=== PATIENT | female | born 1975 | race Caucasian/White ===

== ENCOUNTER 2018-04-27 11:59 | Inpatient (IN) | payer MEDICAID ==
[~2018-04-27] VITALS: Ht 157.5 cm; Wt 82.1 kg
[2018-04-27 12:11] VITALS: Ht 157.5 cm; Wt 82.1 kg
[2018-04-27 13:50] LABS: UA SPECIFIC GRAVITY 1.025 (1.005-1.035); microscopic required? YES; urine erythrocyte 3+ (NEGATIVE)
[2018-04-27 13:51] LABS: BASOPHIL % 0.6 % (0-2); PLATELET COUNT 243 x10^3mcL (130-400)
[2018-04-27 14:07] LABS: RED CELL DISTRIBUTION WIDTH 19.6 % (11.5-14.5)
[2018-04-27 14:12] LABS: CALCIUM 7.9 mg/dL (8.5-10.1); CARBON DIOXIDE 27.7 mmol/L (21-32); CHLORIDE SERUM 103 mmol/L (98-107); CREATININE SERUM 0.8 mg/dL (0.6-1.0); GFR1 > 60 mL/min; GLUCOSE SERUM 108 mg/dL (74-106); POTASSIUM SERUM 3.6 mmol/L (3.5-5.1); SODIUM SERUM 137 mmol/L (136-145)
[2018-04-27 14:16] LABS: ALKALINE PHOSPHATASE 75 U/L (46-116); AST/SGOT 8 U/L (15-37); BILIRUBIN TOTAL 0.25 mg/dL (0.20-1.00)
[2018-04-27 14:17] LABS: ALBUMIN 2.9 g/dL (3.4-5.0)
[2018-04-27 14:50] LABS: ALT/SGPT 16 U/L (14-59)
[2018-04-27 15:11] LABS: MAGNESIUM 1.7 mg/dL (1.8-2.4); PHOSPHOROUS 2.3 mg/dL (2.5-4.9)
[2018-04-27 15:23] LABS: CHOLESTEROL/HDL RATIO 2.5
[2018-04-27 16:46] VITALS: BP 129/71
[2018-04-27 17:33] VITALS: BP 129/71
[2018-04-27 21:20] VITALS: BP 130/72
[2018-04-27 21:49] LABS: AMPHETAMINE QUAL UR POSITIVE (See below)
[2018-04-28 05:05] VITALS: BP 117/68
[2018-04-28 06:34] LABS: BASOPHIL % 0.2 % (0-2); PLATELET COUNT 213 x10^3mcL (130-400)
[2018-04-28 06:44] LABS: RED CELL DISTRIBUTION WIDTH 18.5 % (11.5-14.5)
[2018-04-28 06:47] LABS: CALCIUM 8.1 mg/dL (8.5-10.1); CARBON DIOXIDE 28.6 mmol/L (21-32); CHLORIDE SERUM 103 mmol/L (98-107); CREATININE SERUM 0.9 mg/dL (0.6-1.0); GFR1 > 60 mL/min; GLUCOSE SERUM 102 mg/dL (74-106); MAGNESIUM 1.9 mg/dL (1.8-2.4); PHOSPHOROUS 4.2 mg/dL (2.5-4.9); SODIUM SERUM 137 mmol/L (136-145)
[2018-04-28 08:45] VITALS: BP 119/53
[2018-04-28 09:02] VITALS: BP 119/53
[2018-04-28 12:09] VITALS: BP 132/70
[2018-04-28 17:08] VITALS: BP 121/70
[2018-04-28 21:19] VITALS: BP 133/72
[2018-04-29 05:35] VITALS: BP 137/74
[2018-04-29 09:18] VITALS: BP 165/82
[2018-04-29 13:53] VITALS: BP 140/83
[2018-04-29 17:47] VITALS: BP 131/76
[2018-04-29 20:42] VITALS: BP 130/66
[2018-04-30 03:30] VITALS: BP 91/54
[2018-04-30 05:29] VITALS: BP 137/77
[2018-04-30 06:27] LABS: BASOPHIL % 0.2 % (0-2); PLATELET COUNT 229 x10^3mcL (130-400)
[2018-04-30 06:38] LABS: CALCIUM 8.3 mg/dL (8.5-10.1); CARBON DIOXIDE 26.6 mmol/L (21-32); CHLORIDE SERUM 106 mmol/L (98-107); CREATININE SERUM 0.8 mg/dL (0.6-1.0); GFR1 > 60 mL/min; GLUCOSE SERUM 88 mg/dL (74-106); MAGNESIUM 1.6 mg/dL (1.8-2.4); PHOSPHOROUS 3.5 mg/dL (2.5-4.9); POTASSIUM SERUM 4.2 mmol/L (3.5-5.1); SODIUM SERUM 140 mmol/L (136-145)
[2018-04-30 07:05] LABS: RED CELL DISTRIBUTION WIDTH 19.5 % (11.5-14.5)
[2018-04-30 09:31] VITALS: BP 137/77
[2018-04-30 10:37] VITALS: BP 147/74
[2018-04-30] MEDS ORDERED: CIPROFLOXACIN500 MG PO (13:01)
[2018-04-30] MEDS ORDERED: NORCO1 TA2 PO (13:02)
[2018-04-30 13:17] VITALS: BP 147/74
[2018-04-30 13:37] VITALS: BP 122/73
== END 2018-04-30 14:53 | disposition home or self-care (01) | DRG 463 ==
LOC: ED 11:59 → MU 14:50 → DU 14:50 → MU 16:15 → DU 17:36
PROVIDERS: Emergency Medicine; Internal Medicine
DX: N39.0 Urinary tract infection, site not specified (principal); N17.0 Acute kidney failure with tubular necrosis; E44.0 Moderate protein-calorie malnutrition; E83.39 Other disorders of phosphorus metabolism; D50.9 Iron deficiency anemia, unspecified; F17.200 Nicotine dependence, unspecified, uncomplicated; B96.1 Klebsiella pneumoniae [K. pneumoniae] as the cause of diseases classified elsewhere; E83.51 Hypocalcemia; I10 Essential (primary) hypertension; J45.909 Unspecified asthma, uncomplicated; E78.1 Pure hyperglyceridemia; Z68.29 Body mass index [BMI] 29.0-29.9, adult
CPT/HCPCS: 83880; 87804; 99406; C9113; J0696; J0744; J1885; J2405; J7030; J7620; Q0092

== ENCOUNTER 2018-09-03 05:11 | Emergency (ER) | payer MEDICAID ==
[~2018-09-03] VITALS: Ht 157.5 cm; Wt 81.6 kg
[~2018-09-03 05:11] MED LIST: CIPROFLOXACIN500 MG PO; NORCO1 TA2 PO
[2018-09-03 05:20] VITALS: Ht 157.5 cm; Wt 81.6 kg
[2018-09-03 06:32] VITALS: BP 166/90
[2018-09-03 06:44] LABS: microscopic required? YES; urine erythrocyte 3+ (NEGATIVE)
== END 2018-09-03 06:32 | disposition home or self-care (01) ==
LOC: ED 05:11
PROVIDERS: Specialist
DX: N39.0 Urinary tract infection, site not specified (principal); J45.909 Unspecified asthma, uncomplicated; I10 Essential (primary) hypertension; Z98.51 Tubal ligation status; Z91.018 Allergy to other foods; Z98.890 Other specified postprocedural states
CPT/HCPCS: J0696; J1885; Q0162

== ENCOUNTER 2018-10-24 23:37 | Inpatient (IN) | payer MEDICAID ==
[~2018-10-24] VITALS: Ht 157.5 cm; Wt 82.0 kg
[2018-10-24 23:42] VITALS: Ht 157.5 cm; Wt 82.0 kg
[2018-10-25 00:21] LABS: CALCIUM 8.5 mg/dL (8.5-10.1); CARBON DIOXIDE 27.4 mmol/L (21-32); CREATININE SERUM 1.1 mg/dL (0.6-1.0); POTASSIUM SERUM 3.3 mmol/L (3.5-5.1)
[2018-10-25 00:26] LABS: BASOPHIL % 0.5 % (0-2); PLATELET COUNT 343 x10^3mcL (130-400); RED CELL DISTRIBUTION WIDTH 19.9 % (11.5-14.5)
[2018-10-25 00:28] LABS: BILIRUBIN TOTAL 0.4 mg/dL (0.20-1.00); TOTAL PROTEIN, SERUM 7.4 g/dL (6.4-8.2)
[2018-10-25 00:31] LABS: ALBUMIN 3.1 g/dL (3.4-5.0)
[2018-10-25 02:56] LABS: CHOLESTEROL/HDL RATIO 2.7
[2018-10-25 03:07] LABS: T3 TOTAL 1.12 ng/mL
[2018-10-25 03:21] LABS: FREE T4 0.88 ng/dL (0.76-1.46); FREE THYROXINE INDEX 1.6 ug/dL (1.4-4.5); T4(THYROXINE) 4.9 ug/dL (4.7-13.3)
[2018-10-25 03:33] VITALS: BP 148/79
[2018-10-25 06:39] LABS: CALCIUM 8.4 mg/dL (8.5-10.1); CARBON DIOXIDE 27.6 mmol/L (21-32); CREATININE SERUM 1.1 mg/dL (0.6-1.0); POTASSIUM SERUM 3.3 mmol/L (3.5-5.1)
[2018-10-25 07:25] LABS: BASOPHIL % 0.8 % (0-2); PLATELET COUNT 303 x10^3mcL (130-400)
[2018-10-25 07:45] LABS: RED CELL DISTRIBUTION WIDTH 18.1 % (11.5-14.5)
[2018-10-25 09:08] VITALS: BP 151/85
[2018-10-25 09:46] LABS: ovalocyte/elliptocyte 1+; rbc morphology (normal/abnorm) ABNORMAL (NORMAL)
[2018-10-25 10:15] LABS: microscopic required? YES; urine erythrocyte 3+ (NEGATIVE)
[2018-10-25 17:17] VITALS: BP 134/77
[2018-10-25 21:06] VITALS: BP 152/76
[2018-10-26 04:40] VITALS: BP 134/66
[2018-10-26 06:29] LABS: BASOPHIL % 0.2 % (0-2); PLATELET COUNT 277 x10^3mcL (130-400)
[2018-10-26 06:54] LABS: RED CELL DISTRIBUTION WIDTH 19.1 % (11.5-14.5)
[2018-10-26 07:07] LABS: CALCIUM 8.2 mg/dL (8.5-10.1); CARBON DIOXIDE 24.2 mmol/L (21-32); CHLORIDE SERUM 108 mmol/L (98-107); CREATININE SERUM 0.9 mg/dL (0.6-1.0); GFR1 > 60 mL/min; GLUCOSE SERUM 96 mg/dL (74-106); MAGNESIUM 1.8 mg/dL (1.8-2.4); PHOSPHOROUS 3.1 mg/dL (2.5-4.9); POTASSIUM SERUM 4.2 mmol/L (3.5-5.1); SODIUM SERUM 140 mmol/L (136-145)
[2018-10-26 09:21] VITALS: BP 155/89
[2018-10-26 16:23] VITALS: BP 149/86
[2018-10-26 22:25] VITALS: BP 159/82
[2018-10-27 05:59] VITALS: BP 158/83
[2018-10-27 07:11] LABS: BASOPHIL % 0.3 % (0-2); PLATELET COUNT 300 x10^3mcL (130-400)
[2018-10-27 07:22] LABS: RED CELL DISTRIBUTION WIDTH 19.5 % (11.5-14.5)
[2018-10-27 08:00] LABS: CALCIUM 8.3 mg/dL (8.5-10.1); CHLORIDE SERUM 108 mmol/L (98-107); CREATININE SERUM 0.8 mg/dL (0.6-1.0); GFR1 > 60 mL/min; GLUCOSE SERUM 89 mg/dL (74-106); MAGNESIUM 1.7 mg/dL (1.8-2.4); PHOSPHOROUS 3.1 mg/dL (2.5-4.9); POTASSIUM SERUM 4.1 mmol/L (3.5-5.1); SODIUM SERUM 141 mmol/L (136-145)
[2018-10-27 08:37] VITALS: BP 159/80
[2018-10-27 17:14] VITALS: BP 158/85
[2018-10-27 21:17] VITALS: BP 133/64
[2018-10-28 04:19] VITALS: BP 146/85
[2018-10-28 07:34] LABS: BASOPHIL % 0.3 % (0-2); PLATELET COUNT 300 x10^3mcL (130-400)
[2018-10-28 07:37] LABS: RED CELL DISTRIBUTION WIDTH 20.2 % (11.5-14.5); rbc morphology (normal/abnorm) ABNORMAL (NORMAL)
[2018-10-28 07:45] LABS: CALCIUM 8.3 mg/dL (8.5-10.1); CARBON DIOXIDE 25.3 mmol/L (21-32); CHLORIDE SERUM 107 mmol/L (98-107); CREATININE SERUM 0.8 mg/dL (0.6-1.0); GFR1 > 60 mL/min; GLUCOSE SERUM 96 mg/dL (74-106); MAGNESIUM 1.8 mg/dL (1.8-2.4); PHOSPHOROUS 3.5 mg/dL (2.5-4.9); POTASSIUM SERUM 4.1 mmol/L (3.5-5.1); SODIUM SERUM 140 mmol/L (136-145)
[2018-10-28 08:50] VITALS: BP 150/75
[2018-10-28 12:23] VITALS: BP 148/72
== END 2018-10-28 14:40 | disposition left against medical advice (07) | DRG 466 ==
LOC: ED 23:37 → MU 10-25 01:51
PROVIDERS: Emergency Medicine; ADMIT Family Medicine
DX: T83.192A Other mechanical complication of indwelling ureteral stent, initial encounter (principal); E44.0 Moderate protein-calorie malnutrition; N13.6 Pyonephrosis; N13.2 Hydronephrosis with renal and ureteral calculous obstruction; E87.6 Hypokalemia; D50.0 Iron deficiency anemia secondary to blood loss (chronic); I10 Essential (primary) hypertension; F17.210 Nicotine dependence, cigarettes, uncomplicated; M06.9 Rheumatoid arthritis, unspecified; J45.909 Unspecified asthma, uncomplicated; Z68.32 Body mass index [BMI] 32.0-32.9, adult; Z53.29 Procedure and treatment not carried out because of patient's decision for other reasons; Y73.2 Prosthetic and other implants, materials and accessory gastroenterology and urology devices associated with adverse incidents; Y92.009 Unspecified place in unspecified non-institutional (private) residence as the place of occurrence of the external cause
CPT/HCPCS: 84439; J0744; J1885; J2405; J7030; Q0092

== ENCOUNTER 2019-03-27 14:43 | Inpatient (IN) | payer MEDICAID ==
[~2019-03-27] VITALS: Ht 157.5 cm; Wt 73.5 kg
[2019-03-27 15:04] VITALS: Ht 157.5 cm; Wt 73.5 kg
[2019-03-27 15:40] LABS: BASOPHIL % 0.5 % (0-2)
--- NOTE | 2019-03-27 15:40 | NUR ---
PATIENT PRESENTS TO THE ED WITH C/O LEFT SIDED FLANK PAIN AND UTI SYMPTOMS X 7 DAYS. PT STS SHE HAS A HX OF UTI INFECTIONS AND HAS A STENT PLACED IN LEFT KIDNEY. PT BREATHING E/U, SKIN WARM, DRY AND INTACT. PT PLACED ON ALL MONITORS FOR FURTHER OBSERVATION. WILL CONTINUE TO MONITOR.
[2019-03-27 15:53] LABS: CALCIUM 8.2 mg/dL (8.5-10.1); CARBON DIOXIDE 28.4 mmol/L (21-32); CHLORIDE SERUM 102 mmol/L (98-107); GFR1 > 60 mL/min; GLUCOSE SERUM 110 mg/dL (74-106); POTASSIUM SERUM 3.4 mmol/L (3.5-5.1); SODIUM SERUM 139 mmol/L (136-145)
[2019-03-27 15:54] LABS: PLATELET COUNT 429 x10^3mcL (130-400); RED CELL DISTRIBUTION WIDTH 19.8 % (11.5-14.5)
[2019-03-27 15:58] LABS: ALKALINE PHOSPHATASE 67 U/L (46-116); ALT/SGPT 15 U/L (14-59); AST/SGOT 11 U/L (15-37); BILIRUBIN TOTAL 0.3 mg/dL (0.20-1.00); TOTAL PROTEIN, SERUM 7.7 g/dL (6.4-8.2)
[2019-03-27 15:59] LABS: ALBUMIN 2.6 g/dL (3.4-5.0)
[2019-03-27 16:07] LABS: rbc morphology (normal/abnorm) ABNORMAL (NORMAL)
--- NOTE | 2019-03-27 16:40 | NUR ---
MEDICATED PER MD ORDERS- SEE EMR
[2019-03-27 16:54] LABS: microscopic required? YES; urine erythrocyte 3+ (NEGATIVE)
--- NOTE | 2019-03-27 17:14 | NUR ---
PATIENT LYING ON GURNEY- NO SS OF DISTRESS NOTED. WILL CONTINUE TO MONITOR.
--- NOTE | 2019-03-27 19:17 | NUR ---
PATIENT LYING ON GURNEY- MEDICAL STUDENT EVALUATING PT. NAD NOTED. VSS.
--- NOTE | 2019-03-27 19:20 | NUR ---
REPORT PROVIDED TO JEISON MATTSON FOR CONTINUED CARE OF PATIENT.
--- NOTE | 2019-03-27 19:24 | NUR ---
PT MEDICATED PER ORDER. PT VERBALIZED UNDERSTANDING OF MEDICATION TEACHING. SEE EMAR FOR DETAILS.
--- NOTE | 2019-03-27 19:31 | NUR ---
REPORT CALLED TO JEISON ZARATE TO ASSUME CARE OF PT
--- NOTE | 2019-03-27 19:45 | NUR ---
PT TRANSFERRED TO TELE FLOOR ACCOMPANIED BY NURSE AND EMT. NO S/S OF DISTRESS. RESP E/U. PT CONNECTED TO MONITOR. DURING TRANSFER. IV SITE PATENT, NO S/S OF INFILTRATION.
[2019-03-27 19:56] VITALS: BP 139/77
--- NOTE | 2019-03-27 19:59 | NUR ---
RECEIVED PT FROM ED VIA KORIN. ORIENTED PT TO ROOM AND SURROUNDINGS. IV NOTED TO LAC PATENT AND INTACT. TELE 6 PLACED ON PT READING SR. INSTRUCTED PT ON THE USE OF CALL LIGHT FOR ASSISTANCE. ENDORSED PT TO PRIMARY NURSE ELLIOT
--- NOTE | 2019-03-27 20:30 | NUR ---
PT C/O 10 LEFT FLANK PAIN. NO ALLEVIATING FACTORS. MEDICATED WITH PRN MORPHINE PER JUL. NO ACUTE DISTRESS NOTED. WILL CONT TO MONITOR.
--- NOTE | 2019-03-28 00:05 | NUR ---
PT LAYING DOWN IN BED WITH EYES CLOSED. BREATHING EVEN AND UNLABORED ON RA. NO ACUTE DISTRESS NOTED. BED AT LOWEST SETTING. SIDE RAILS X2 UP. CALL LIGHT WITHING REACH. WILL CONT TO MONITOR.
--- NOTE | 2019-03-28 00:19 | NUR ---
K 3.[address] POWERS. NO NEW ORDERS RECEIVED.
[2019-03-28 04:19] VITALS: BP 144/82
--- NOTE | 2019-03-28 04:45 | NUR ---
PT C/O 01/29 FLANK PAIN. MEDICATED WITH PRN MORPHINE PER JUL. NO ACUTE DISTRESS NOTED. WILL CONT TO MONITOR.
--- NOTE | 2019-03-28 06:02 | NUR ---
PT SLEPT AT INTERVALS DURING SHIFT, BREATHING EVEN AND UNLABORED ON RA. PT CONTINUES TO HAVE FLANK PAIN, PT STATES GOOD RELIEF WITH PAIN MEDICATION. PT TEMP 101.[address] MEDICATED WITH PRN TYLENOL PER JUL. CURRENT TEMP 99.9. COOLING MEASURES STILL IN PLACE. NO ACUTE DISTRESS NOTED. URINE STRAINED AND NO STONES NOTED. ALL NEEDS ASSESSED AND ATTENDED TO. BED AT LOWEST SETTING. SIDE RAILS X2 UP. CALL LIGHT WITHING REACH. WILL ENDORSE CARE TO AM NURSE.
[2019-03-28 06:39] LABS: BASOPHIL % 0.4 % (0-2); PLATELET COUNT 372 x10^3mcL (130-400)
[2019-03-28 07:01] LABS: CALCIUM 7.4 mg/dL (8.5-10.1); CARBON DIOXIDE 24.4 mmol/L (21-32); CHLORIDE SERUM 105 mmol/L (98-107); CREATININE SERUM 0.9 mg/dL (0.6-1.0); GFR1 > 60 mL/min; GLUCOSE SERUM 104 mg/dL (74-106); MAGNESIUM 1.8 mg/dL (1.8-2.4); PHOSPHOROUS 2.9 mg/dL (2.5-4.9); POTASSIUM SERUM 3.2 mmol/L (3.5-5.1); SODIUM SERUM 140 mmol/L (136-145)
--- NOTE | 2019-03-28 07:15 | NUR ---
SEEN IN BED AAOX4. NO RESP DISTRESS NOTED. BREATHING E/U ON ROOM AIR. STATED PAIN TO LOWER ABDOMEN 4/10 ON PAIN SCALE. IVF NS TO LAC INFUSING WELL. CALL LIGHT PLACED WITHIN EASY REACH. SIDERAISL UP X2.
[2019-03-28 08:00] LABS: RED CELL DISTRIBUTION WIDTH 19.5 % (11.5-14.5)
[2019-03-28 08:42] VITALS: BP 139/81
[2019-03-28 08:43] LABS: AMPHETAMINE QUAL UR POSITIVE (See below)
[2019-03-28 10:43] LABS: rbc morphology (normal/abnorm) NORMAL (NORMAL)
[2019-03-28 12:02] VITALS: BP 130/79
--- NOTE | 2019-03-28 17:31 | NUR ---
NO ANY DISTRESS THROUGHOUT SHIFT. ALL SCHEDULED MEDS GIVEN. MORPHINE X1 AND NORCO X1 GIVEN FOR LOWER ABDOMEN PAIN WITH GOOD RELIEF. BRP. STATED STILL FEEL BURNING ON URINATION, ALL URINE STRAINED NO ANY STONES NOTED. IVF NS TO LAC INFUSING WELL.
[2019-03-28 17:55] VITALS: BP 138/75
--- NOTE | 2019-03-28 19:35 | NUR ---
RECEIVED REPORT FROM DAY SHIFT NURSE, KRYSTAL MCHUGH. PT IS AAOX4, RESTING IN BED COMFORTABLY WITH EYES CLOSED. TELE #6 READING NSR. PULSES ARE PALPABLE. NO EDEMA PRESENT. BREATHING IS EVEN AND UNLABORED ON RA. LUNG SOUNDS CTA. ABD IS SOFT AND NONDISTENDED. BS ACTIVE IN ALL 4Q. PT C/O DYSURIA, BURNING SENSATION. AMBULATORY. SKIN INTACT. IV TO LAC RUNNING NS AT 100 CC. INFUSING WELL. BED IN LOWEST POSITION. CALL LIGHT WITHIN REACH. WILL CONTINUE TO MONITOR.
[2019-03-28 19:41] VITALS: BP 130/73
--- NOTE | 2019-03-28 19:45 | NUR ---
PT C/O 11/28 SHARP LOWER ABDOMEN PAIN. WILL MEDICATE WITH NORCO PER MAR ORDER.
--- NOTE | 2019-03-28 21:39 | NUR ---
ROUTINE MEDICATIONS WERE ADMINISTERED AND TOLERATED WELL. NO SIGNS OF ACUTE DISTRESS. PT IS RESTING COMFORTABLY WITH EYES CLOSED, BUT EASILY AROUSABLE WHEN SPOKEN TO. DENIES ANY PAIN AT THIS TIME. BREATHING IS EVEN AND UNLABORED ON RA. NO SIGNS OF RESP. DISTRESS. BED IN LOWEST POSITION. CALL LIGHT WITHIN REACH. WILL CONTINUE TO MONITOR.
--- NOTE | 2019-03-29 00:11 | NUR ---
PT IS RESTING COMFORTABLY WITH EYES CLOSED, BUT EASILY AROUSABLE WHEN SPOKEN TO. BREATHING IS EVEN AND UNLABORED ON RA. NO SIGNS OF RESP. DISTRESS. BED IN LOWEST POSITION. CALL LIGHT WITHIN REACH. WILL CONTINUE TO MONITOR.
[2019-03-29 03:47] VITALS: BP 125/65
--- NOTE | 2019-03-29 06:18 | NUR ---
PT SLEPT THROUGHTOUT THE SHIFT AND COMPLIED WITH NURSING CARE WITH NO ACUTE EVENTS OCCURRING OVERNIGHT. COMFORT AND SAFETY MEASURES MAINTAINED. ALL NEEDS ASSESSED AND ATTENDED TO. WILL ENDORSE CARE TO DAY SHIFT NURSE AND CONTINUE TO MONITOR.
[2019-03-29 06:32] LABS: CALCIUM 7.8 mg/dL (8.5-10.1); CARBON DIOXIDE 27.9 mmol/L (21-32); CHLORIDE SERUM 106 mmol/L (98-107); CREATININE SERUM 0.8 mg/dL (0.6-1.0); GFR1 > 60 mL/min; GLUCOSE SERUM 91 mg/dL (74-106); MAGNESIUM 1.8 mg/dL (1.8-2.4); PHOSPHOROUS 3.2 mg/dL (2.5-4.9); POTASSIUM SERUM 3.9 mmol/L (3.5-5.1); SODIUM SERUM 139 mmol/L (136-145)
[2019-03-29 06:44] LABS: BASOPHIL % 0.6 % (0-2); PLATELET COUNT 377 x10^3mcL (130-400)
[2019-03-29 07:12] LABS: RED CELL DISTRIBUTION WIDTH 19.9 % (11.5-14.5); rbc morphology (normal/abnorm) ABNORMAL (NORMAL)
--- NOTE | 2019-03-29 07:26 | NUR ---
ENDORSED CARE TO DAY SHIFT NURSE, BILL MCHUGH.
--- NOTE | 2019-03-29 07:30 | NUR ---
A&OX4, FOLLOWS COMMANDS. TELE #6 NSR, DENIES CHEST PAIN. PERIPHERAL PULSES PALAPBLE W/ NO SIGNS OF EDEMA. LUNG SOUNDS CTA BILATERALLY. ON RA, O2 SAT 97%. NORMOACTIVE BSX4. PATIENT EXPERIENCES DYSURIA WHILE VOIDING AND PAIN IN THE SUPRAPUBIC AREA WHILE MOVING AROUND. PATIENT IS ABLE TO AMBULATE INDEPENDENTLY. SKIN IS INTACT. WILL CONTINUE TO MONITOR PATIENT'S PAIN LEVEL AND NEED FOR PAIN MEDS. LAC IV SITE IS CDI. COOPERATES WELL.
[2019-03-29 08:36] VITALS: BP 136/81
[2019-03-29 12:01] VITALS: BP 131/81
--- NOTE | 2019-03-29 13:06 | NUR ---
PATIENT IS CURRENTLY EATING LUNCH AND DENIES HAVING ANY PAIN. WILL CONTINUE TO MONITOR.
[2019-03-29 16:19] VITALS: BP 128/77
--- NOTE | 2019-03-29 17:13 | NUR ---
PATIENT REMAISN A&OX4. PATIENT IS ABLE TO FOLLOW COMMANDS AND COOPERATES WELL. REMAINS RESTING WHILE WATCHING TV. PATIENT DENIES ANY CHEST PAIN OR DISCOMFORT AT THIS TIME. ALL QUESTIONS AND CONCERNS HAVE BEEN ADDRESSED. PLAN IS TO CONTINUE ABX UNTIL TOMORROW MORNING AND ASSESS PATIENT STATUS FOR POSSIBLE DISCHARGE. WILL CONTINUE TO ASSESS AND ADDRESS ANY QUESTIONS AND CONCERNS THE PATIENT HAVE. VITAL SIGNS ARE STABLE.
--- NOTE | 2019-03-29 19:20 | NUR ---
REC'D PT FROM DAY NURSE. PT RESTING IN BED. AAOX4, SPEECH CLEAR, FOLLOWS COMMANDS. TELE 6. DENIES CP, DIZZINESS, OR PALPITATIONS. DENIES RESP DISTRESS OR SOB. BREATHING E/U ON RA. NO EDEMA NOTED. ABD SOFT/ROUND. C/O TENDERNESS TO BLQ UPON PALPATION. DENIES PAIN AT REST OR N/V. VOIDING FREELY WITH DYSURIA. ON ABX FOR UTI. STRAINING URINE. AMBULATORY. SKIN INTACT. IV TO LAC PATENT AND INFUSING, SITE WNL. CALL LIGHT WITHIN REACH, BED AT LOWEST POSITION. WILL CONTINUE TO MONITOR.
[2019-03-29 20:08] VITALS: BP 126/84
--- NOTE | 2019-03-30 00:40 | NUR ---
PT RESTING IN BED WITH EYES CLOSED. LAYING ON R SIDE. NO SIGNS OF DISTRESS NOTED. BREATHING EVEN/UNLABORED ON RA. CALL LIGHT WITHIN REACH, BED AT LOWEST POSITION. WILL CONTINUE TO MONITOR.
--- NOTE | 2019-03-30 02:19 | NUR ---
PT C/O SUPRABUPIC PAIN, STABBING 11/28. NORCO GIVEN PER ORDER. WILL MONITOR FOR RELIEF.
--- NOTE | 2019-03-30 05:32 | NUR ---
PT RESTING IN BED WITH EYES CLOSED. BREATHING EVEN/UNLABORED ON RA. NO S/SX OF PAIN NOTED. NO SIGNIFICANT CHANGES DURING SHIFT. NO STONE COLLECTED WHILE STRAINING URINE. CALL LIGHT WITHIN REACH, BED AT LOWEST POSITION. WILL ENDORSE TO DAY NURSE.
[2019-03-30 06:19] VITALS: BP 133/74
[2019-03-30 07:02] LABS: BASOPHIL % 0.5 % (0-2)
[2019-03-30 07:20] LABS: PLATELET COUNT 421 x10^3mcL (130-400); RED CELL DISTRIBUTION WIDTH 19.6 % (11.5-14.5)
[2019-03-30 07:21] LABS: CALCIUM 7.8 mg/dL (8.5-10.1); CARBON DIOXIDE 27.9 mmol/L (21-32); CHLORIDE SERUM 106 mmol/L (98-107); CREATININE SERUM 0.8 mg/dL (0.6-1.0); GFR1 > 60 mL/min; GLUCOSE SERUM 91 mg/dL (74-106); POTASSIUM SERUM 3.9 mmol/L (3.5-5.1); SODIUM SERUM 141 mmol/L (136-145); rbc morphology (normal/abnorm) ABNORMAL (NORMAL)
--- NOTE | 2019-03-30 07:30 | NUR ---
PATIENT IS A&OX4 AND FOLLOWS COMMANDS. TELE #6 NSR, DENIES CHEST PAIN. PERIPHERAL PULSES ARE PALPABLE, SKIN SI WARM TO TOUCH, AND TRACE EDEMA PRESENT ON RIGHT HAND. ENCOURAGED PATIENT TO PERFORM ACTIVE ROM ON RUE TO REDUCE EDEMA. NO SIGNS OF OTHER EDEMA PRESENT. LUNG SOUNDS CTA BILATERALLY, ON RA, DOES NOT SHOW SOB. NORMOACTIVE BS. VOIDS WELL, STATES MILD DYSURIA WHEN URINATING. PATIENT IS AMBULATORY AND INDEPENDENT WITH ALL CARES. LAC IV SITE IS CDI. WILL CONTINUE TO MONITOR FOR ANY WORSENING INFECTION OR PAIN.
[2019-03-30 09:17] VITALS: BP 144/83
[2019-03-30] MEDS ORDERED: CIPRO500 MG PO (10:33)
[2019-03-30] MEDS ORDERED: FLO4 PO (10:43)
[2019-03-30] MEDS ORDERED: BACO TOP (10:43)
[2019-03-30] MEDS ORDERED: APLICARE ANTIS118 M3 TOP (10:44)
[2019-03-30 11:06] VITALS: BP 133/74
== END 2019-03-30 11:40 | disposition home or self-care (01) | DRG 463 ==
LOC: ED 14:43 → DU 19:12
PROVIDERS: Emergency Medicine; ADMIT Internal Medicine
DX: N13.6 Pyonephrosis (principal); E83.51 Hypocalcemia; N30.01 Acute cystitis with hematuria; D50.0 Iron deficiency anemia secondary to blood loss (chronic); F17.210 Nicotine dependence, cigarettes, uncomplicated; D47.3 Essential (hemorrhagic) thrombocythemia; N10 Acute pyelonephritis; E87.6 Hypokalemia; B96.20 Unspecified Escherichia coli [E. coli] as the cause of diseases classified elsewhere; I10 Essential (primary) hypertension; M06.9 Rheumatoid arthritis, unspecified; J45.909 Unspecified asthma, uncomplicated; Z22.322 Carrier or suspected carrier of Methicillin resistant Staphylococcus aureus; Z87.442 Personal history of urinary calculi; Z91.018 Allergy to other foods; Z98.51 Tubal ligation status
CPT/HCPCS: 99406; G0378; J0696; J1885; J2270; J2405; J3370; J7030; J7050; Q0092

== ENCOUNTER 2019-04-07 12:41 | Emergency (ER) | payer MEDICAID ==
[~2019-04-07] VITALS: Ht 157.5 cm; Wt 74.8 kg
[~2019-04-07 12:41] MED LIST changes: +APLICARE ANTIS118 M3 TOP; +BACO TOP; +CIPRO500 MG PO; +FLO4 PO
[2019-04-07 12:58] VITALS: BP 99/58; Ht 157.5 cm; Wt 74.8 kg
[2019-04-07 13:53] LABS: PLATELET COUNT 492 x10^3mcL (130-400); RED CELL DISTRIBUTION WIDTH 20.5 % (11.5-14.5)
[2019-04-07 14:10] LABS: CARBON DIOXIDE 28.1 mmol/L (21-32); CREATININE SERUM 1.3 mg/dL (0.6-1.0); POTASSIUM SERUM 3.9 mmol/L (3.5-5.1)
[2019-04-07 14:15] LABS: TOTAL PROTEIN, SERUM 7.2 g/dL (6.4-8.2)
[2019-04-07 14:19] LABS: ALBUMIN 2.7 g/dL (3.4-5.0)
[2019-04-07 15:37] LABS: BAND NEUTROPHIL 3 % (0-10); MONOCYTE 1 % (0-7); SEGMENTED NEUTROPHILS 89 % (37-75)
[2019-04-07 15:55] LABS: rbc morphology (normal/abnorm) NORMAL (NORMAL)
== END 2019-04-07 16:30 | disposition left against medical advice (07) ==
LOC: ED 12:41
DX: Z53.21 Procedure and treatment not carried out due to patient leaving prior to being seen by health care provider (principal)

== ENCOUNTER 2019-06-17 13:30 | Emergency (ER) | payer MEDICAID ==
[~2019-06-17] VITALS: Ht 157.5 cm; Wt 78.5 kg
[2019-06-17 14:04] VITALS: Ht 157.5 cm; Wt 78.5 kg
[2019-06-17 17:55] VITALS: BP 157/89
== END 2019-06-17 17:55 | disposition home or self-care (01) ==
LOC: ED 13:30
DX: H66.91 Otitis media, unspecified, right ear (principal); M06.9 Rheumatoid arthritis, unspecified; Z91.018 Allergy to other foods; Z98.51 Tubal ligation status
CPT/HCPCS: 87804; J0696; J1885

== ENCOUNTER 2019-07-01 20:20 | Inpatient (IN) | payer MEDICAID ==
[~2019-07-01] VITALS: Ht 157.5 cm; Wt 82.6 kg
[2019-07-01 20:28] VITALS: Ht 157.5 cm; Wt 82.6 kg
[2019-07-01 21:23] LABS: BASOPHIL % 0.6 % (0-2); PLATELET COUNT 338 x10^3mcL (130-400)
[2019-07-01 21:31] LABS: CALCIUM 8.5 mg/dL (8.5-10.1); CHLORIDE SERUM 108 mmol/L (98-107); GFR1 > 60 mL/min; GLUCOSE SERUM 115 mg/dL (74-106); POTASSIUM SERUM 3.8 mmol/L (3.5-5.1); SODIUM SERUM 141 mmol/L (136-145)
[2019-07-01 21:34] LABS: RED CELL DISTRIBUTION WIDTH 19.3 % (11.5-14.5)
[2019-07-01 21:36] LABS: ALKALINE PHOSPHATASE 65 U/L (46-116); ALT/SGPT 18 U/L (14-59); AST/SGOT 11 U/L (15-37); BILIRUBIN TOTAL 0.2 mg/dL (0.20-1.00); TOTAL PROTEIN, SERUM 7.3 g/dL (6.4-8.2)
[2019-07-01 21:38] LABS: ALBUMIN 2.9 g/dL (3.4-5.0)
[2019-07-02 00:57] LABS: microscopic required? YES; urine erythrocyte 2+ (NEGATIVE)
[2019-07-02 02:38] VITALS: BP 143/72
[2019-07-02 03:06] LABS: CHOLESTEROL/HDL RATIO 2.9; MAGNESIUM 1.6 mg/dL (1.8-2.4); PHOSPHOROUS 3.1 mg/dL (2.5-4.9)
[2019-07-02 03:13] LABS: T3 TOTAL 1.21 ng/mL
[2019-07-02 03:16] LABS: FREE T4 0.89 ng/dL (0.76-1.46); FREE THYROXINE INDEX 2.1 ug/dL (1.4-4.5); T4(THYROXINE) 6.1 ug/dL (4.7-13.3)
[2019-07-02 06:13] VITALS: BP 141/75
[2019-07-02 06:16] LABS: BASOPHIL % 0.5 % (0-2)
[2019-07-02 06:55] LABS: CARBON DIOXIDE 25.5 mmol/L (21-32); CHLORIDE SERUM 108 mmol/L (98-107); CREATININE SERUM 0.9 mg/dL (0.6-1.0); GFR1 > 60 mL/min; GLUCOSE SERUM 90 mg/dL (74-106); MAGNESIUM 1.6 mg/dL (1.8-2.4); PHOSPHOROUS 3.5 mg/dL (2.5-4.9); POTASSIUM SERUM 3.8 mmol/L (3.5-5.1); SODIUM SERUM 142 mmol/L (136-145)
[2019-07-02 07:52] LABS: TOTAL IRON BINDING CAPACITY 348 ug/dL (250-450)
[2019-07-02 07:54] LABS: IRON 22 ug/dL (50-170)
[2019-07-02 08:24] VITALS: BP 168/75
[2019-07-02 08:29] LABS: RED CELL DISTRIBUTION WIDTH 18.9 % (11.5-14.5)
[2019-07-02 08:36] LABS: PLATELET COUNT 330 x10^3mcL (130-400)
[2019-07-02 12:48] VITALS: BP 167/94
[2019-07-02 16:28] VITALS: BP 144/68
[2019-07-02 21:33] VITALS: BP 145/70
[2019-07-03 05:32] VITALS: BP 128/65
[2019-07-03 06:37] LABS: BASOPHIL % 0.8 % (0-2); PLATELET COUNT 304 x10^3mcL (130-400)
[2019-07-03 06:43] LABS: CHLORIDE SERUM 107 mmol/L (98-107); CREATININE SERUM 0.9 mg/dL (0.6-1.0); GFR1 > 60 mL/min; GLUCOSE SERUM 92 mg/dL (74-106); POTASSIUM SERUM 4.6 mmol/L (3.5-5.1); SODIUM SERUM 140 mmol/L (136-145)
[2019-07-03 07:12] LABS: RED CELL DISTRIBUTION WIDTH 18.8 % (11.5-14.5)
[2019-07-03 09:11] VITALS: BP 140/80
[2019-07-03 11:59] VITALS: BP 164/74
[2019-07-03 16:31] VITALS: BP 121/73
[2019-07-03 19:28] VITALS: BP 141/68
[2019-07-04 05:05] VITALS: BP 145/71
[2019-07-04 09:04] VITALS: BP 141/72
[2019-07-04 17:09] VITALS: BP 140/74
[2019-07-04 19:29] VITALS: BP 138/71
[2019-07-05 05:22] VITALS: BP 147/75
[2019-07-05 06:36] LABS: BASOPHIL % 0.4 % (0-2); PLATELET COUNT 302 x10^3mcL (130-400)
[2019-07-05 06:55] LABS: CALCIUM 8.5 mg/dL (8.5-10.1); CARBON DIOXIDE 27.6 mmol/L (21-32); CHLORIDE SERUM 107 mmol/L (98-107); CREATININE SERUM 0.9 mg/dL (0.6-1.0); GFR1 > 60 mL/min; GLUCOSE SERUM 98 mg/dL (74-106); POTASSIUM SERUM 4.6 mmol/L (3.5-5.1); SODIUM SERUM 142 mmol/L (136-145)
[2019-07-05 07:01] LABS: RED CELL DISTRIBUTION WIDTH 18.9 % (11.5-14.5)
[2019-07-05 08:16] VITALS: BP 124/66
[2019-07-05 12:15] VITALS: BP 138/75
[2019-07-05] MEDS ORDERED: CEFDINIR300 M1 PO (15:28)
[2019-07-05 15:36] VITALS: BP 138/75
[2019-07-05] MEDS ORDERED: MOT600 PO (16:11)
== END 2019-07-05 16:16 | disposition home or self-care (01) | DRG 443 ==
LOC: ED 20:20 → MU 07-02 00:07
PROVIDERS: Emergency Medicine; Radiology Diagnostic Radiology; Student in an Organized Health Care Education/Training Program; ADMIT Internal Medicine
PROC: 0T143JD Bypass Left Kidney Pelvis to Cutaneous with Synthetic Substitute, Percutaneous Approach (ICD-10-PCS; principal; 2019-07-04 12:00)
DX: N13.2 Hydronephrosis with renal and ureteral calculous obstruction (principal); E43 Unspecified severe protein-calorie malnutrition; E83.42 Hypomagnesemia; T83.092A Other mechanical complication of nephrostomy catheter, initial encounter; N12 Tubulo-interstitial nephritis, not specified as acute or chronic; B96.20 Unspecified Escherichia coli [E. coli] as the cause of diseases classified elsewhere; E78.1 Pure hyperglyceridemia; D50.9 Iron deficiency anemia, unspecified; Z16.24 Resistance to multiple antibiotics; Y73.2 Prosthetic and other implants, materials and accessory gastroenterology and urology devices associated with adverse incidents; Y92.009 Unspecified place in unspecified non-institutional (private) residence as the place of occurrence of the external cause
CPT/HCPCS: 83880; 84439; C1729; G0378; J0696; J1885; J2001; J2250; J2270; J2405; J3010; J7030; J7040; J7050; Q0092; Q9967

== ENCOUNTER 2019-07-08 01:42 | Emergency (ER) | payer MEDICAID ==
[~2019-07-08] VITALS: Ht 170.2 cm; Wt 80.7 kg
[~2019-07-08 01:42] MED LIST changes: +CEFDINIR300 M1 PO; +MOT600 PO
[2019-07-08 01:49] VITALS: BP 199/96; Ht 170.2 cm; Wt 80.7 kg
== END 2019-07-08 05:00 | disposition left against medical advice (07) ==
LOC: ED 01:42
DX: Z53.21 Procedure and treatment not carried out due to patient leaving prior to being seen by health care provider (principal)

== ENCOUNTER 2020-03-08 00:34 | Emergency (ER) | payer MEDICAID ==
[~2020-03-08] VITALS: Ht 157.5 cm; Wt 85.8 kg
[2020-03-08 00:42] VITALS: Ht 157.5 cm; Wt 85.8 kg
[2020-03-08 01:36] LABS: UA SPECIFIC GRAVITY 1.025 (1.005-1.035); microscopic required? YES; urine erythrocyte 3+ (NEGATIVE)
[2020-03-08 02:47] VITALS: BP 159/95
== END 2020-03-08 02:30 | disposition home or self-care (01) ==
LOC: ED 00:34
PROVIDERS: Emergency Medicine
DX: N39.0 Urinary tract infection, site not specified (principal); R10.30 Lower abdominal pain, unspecified; I10 Essential (primary) hypertension; J45.909 Unspecified asthma, uncomplicated; M06.9 Rheumatoid arthritis, unspecified; Z98.51 Tubal ligation status; Z91.018 Allergy to other foods
CPT/HCPCS: J0696; J1885; Q0162